=== PATIENT | female | born 1995 | race Caucasian/White ===

== ENCOUNTER 2023-05-14 13:14 | Outpatient (CLI) | payer OTHER, SELFPAY ==
--- NOTE | ~2023-05-14 | XR_ITS ---
EXAMINATION: XR ankle RT min 3V, XR foot LT min 3V, XR foot RT min 3V, XR ankle LT min 3V DATE: 05/14/2023 13:59 INDICATION: Chronic bilateral foot and ankle pain TECHNIQUE: 1. Anteroposterior, mortise, additional oblique and lateral view of the right ankle were obtained. 2. Dorsoplantar, two oblique and lateral views of the right foot were obtained. 3. Anteroposterior, mortise, additional oblique and lateral view of the left ankle were obtained. 4. Dorsoplantar, two oblique and lateral views of the left foot were obtained. COMPARISON: None. FINDINGS: Alignment of the bilateral feet and ankles is normal. Old healed distal left fibular fracture with la teral plate and screw fixation. Corticated ossicle at the tip of the left medial malleolus which coul d represent either a chronic nonunited avulsion fracture fragment or heterotopic ossification related to chronic deltoid ligament sprain. No acute fractures identified in either foot or ankle. Likely se condary mild osteoarthritis at the left ankle. Joint space at the bilateral feet. Relatively preserve d. No erosions to suggest inflammatory arthritis. Small bilateral Achilles calcaneal spurs and right plantar calcaneal spur. Soft tissues are unremarkable. No ankle joint effusions. IMPRESSION: 1. Old healed distal left fibular fracture with plate and screw fixation. No acute osseous abnormalit y. 2. 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 3. Small bilateral calcaneal enthesophytes. Reviewed, dictated and finalized at location A. IMPRESSION: 1. Old healed distal left fibular fracture with plate and screw fixation. No ac [place] osseous abnormality. 2. 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 3. Small bilateral calcaneal enthesophytes. IMPRESSION: 1. Old healed distal left fibular fracture with plate and screw fixation. No ac [place] osseous abnormality. 2. 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 3. Small bilateral calcaneal enthesophytes. IMPRESSION: 1. Old healed distal left fibular fracture with plate and screw fixation. No ac [place] osseous abnormality. 2. 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 3. Small bilateral calcaneal enthesophytes.
== END 2023-05-14 13:15 | disposition home or self-care (01) ==
LOC: CHSIMG 13:16
PROVIDERS: PCP Internal Medicine; Visit Provider Internal Medicine
DX: M77.31 Calcaneal spur, right foot (principal); M77.32 Calcaneal spur, left foot; Z96.698 Presence of other orthopedic joint implants
CPT/HCPCS: 73610; 73630

== ENCOUNTER 2023-05-21 08:25 | Outpatient (RCR) | payer OTHER, SELFPAY ==
--- NOTE | 2023-05-21 09:23 | OPREHPOC ---
Outpatient Therapy Plan of Care This is a Multidisciplinary Plan of Care that may contain components documented by all disciplines (PT, OT, and ST.) PT Problem 1 PT Problem #1 Knowledge Deficit PT Goal 1 Goal 1. independent and compliant with HEP Target Visit 6 PT Problem 2 PT Problem #2 Pain PT Goal 1 Goal 1. decrease pain at worst to 4/10 in either ankle with standing and walking for 1 hour or more. Target Visit 12 PT Problem 3 PT Problem #3 Impaired Strength PT Goal 1 Goal 1. 5/5 bilateral ankle strength 2. 20 single leg heel raises bilaterally with minimal UE assist Target Visit 12 PT Problem 4 PT Problem #4 Impaired Range of Motion PT Goal 1 Goal 1. improve bilateral ankle arom DF to 12 degrees or better 2. improve bilateral ankle eversion to 10 degrees or better Target Visit 12 PT Problem 5 PT Problem #5 Impaired Functional Mobil PT Goal 1 Goal 1. LEFS to display less than 35% functional deficits 2. patient to complete 10 minutes ambulation in clinic for over 1200ft 3. patient to report standing and completing home care tasks for 1 hour or more at a time. Target Visit 12
--- NOTE | 2023-05-21 09:23 | PTOPEVAL1 ---
Assessment and note entered by JT File, PT Evaluation Information Assessment Status Evaluation Diagnosis L ankle pain Onset 05/13/23 Subjective Information patient reports she has had issues with her ankles all her life. she has broken the L ankle 2 times. she reports most recently her L ankle was broken back in 2014. she reports she did not have surgery on the R ankle. she reports recently she has been having pain in her feet. she reports she has been unable to stand for more than 5 minutes due to pain. she reports she is unable to stand to do dishes, vacuum, clean. she reports she has pain along the inside and top of the L foot, and the outisde of the R foot. she reports she has tried injections to the feet, but reports these only helped for a few months. she reports she would like to be able to be independent and perform longer standing bouts. Reported Pain Level Pain Score 8,7: Self Report Assessment PT Clinical Summary mrs. lujan is a 27 yo woman who presents to skilled PT services with chronic L worse than R ankle pain. she presents with ankle instability bilaterally (worse on the L), ankle weakness, and decreased ankle rom. she would benefit from continued skilled PT to address her objective/ functional deficits to improve her standing, walking, and functional activity performance for better quality of life. Plan of Care Interventions Gait Training,Manual Therapy,Neuro Re-education, Patient/Caregiver Educati,Therapeutic Activities, Therapeutic Exercise PT Services Indicated Yes Treatment Frequency and 3x weekly for 12 visits Duration These treatments will address the objective and functional deficits as defined above. The patient will be advanced safely and appropriately in order for the patient to progress towards his/her prior level of function. Additional exercises will be introduced and as well as a comprehensive home exercise program upon discharge, if needed, ?to ensure carryover of functional gains achieved in the clinic. This treatment plan has been reviewed and agreement upon by the patient.
--- NOTE | 2023-06-09 09:30 | OPREHPOC ---
Outpatient Therapy Plan of Care This is a Multidisciplinary Plan of Care that may contain components documented by all disciplines (PT, OT, and ST.) PT Problem 1 PT Problem #1 Knowledge Deficit PT Goal 1 Goal 1. independent and compliant with HEP Target Visit 6 Progress Met PT Problem 2 PT Problem #2 Pain PT Goal 1 Goal 1. decrease pain at worst to 4/10 in either ankle with standing and walking for 1 hour or more. Target Visit 12 Progress Met PT Problem 3 PT Problem #3 Impaired Strength PT Goal 1 Goal 1. 5/5 bilateral ankle strength 2. 20 single leg heel raises bilaterally with minimal UE assist Target Visit 12 Comment continue PT Problem 4 PT Problem #4 Impaired Range of Motion PT Goal 1 Goal 1. improve bilateral ankle arom DF to 12 degrees or better 2. improve bilateral ankle eversion to 10 degrees or better Target Visit 12 Comment continue PT Problem 5 PT Problem #5 Impaired Functional Mobil PT Goal 1 Goal 1. LEFS to display less than 35% functional deficits 2. patient to complete 10 minutes ambulation in clinic for over 1200ft 3. patient to report standing and completing home care tasks for 1 hour or more at a time. Target Visit 12 Progress Partially Met Comment continue
--- NOTE | 2023-06-09 09:30 | PTOPPROG ---
Assessment and note entered by Abril Collazo DPT Evaluation Information Assessment Status Progress Diagnosis L ankle pain Onset 05/13/23 Subjective Information Patient reports that overall she has noticed improvement. She reports she is able to stand longer prior to onset of pain and has been able to do more house hold chores. Assessment PT Clinical Summary Ms. Murcia has been seen for 10 visits of skilled PT. She is progressing well towards goals at this time. She has met goals for HEP and pain but continues to be limited with standing and performing house hold tasks. She reports improve ability to stand for longer periods of time. She will benefit from remaining 2 visits to address impairments and return to PLOF. Plan of Care Interventions Gait Training,Manual Therapy,Neuro Re-education, Patient/Caregiver Educati,Therapeutic Activities, Therapeutic Exercise PT Services Indicated Yes Treatment Frequency and continue with remaining 2 visits Duration These treatments will address the objective and functional deficits as defined above. The patient will be advanced safely and appropriately in order for the patient to progress towards his/her prior level of function. Additional exercises will be introduced and as well as a comprehensive home exercise program upon discharge, if needed, ?to ensure carryover of functional gains achieved in the clinic. This treatment plan has been reviewed and agreement upon by the patient.
--- NOTE | 2023-06-18 10:01 | OPREHPOC ---
Outpatient Therapy Plan of Care This is a Multidisciplinary Plan of Care that may contain components documented by all disciplines (PT, OT, and ST.) PT Problem 1 PT Problem #1 Knowledge Deficit PT Goal 1 Goal 1. independent and compliant with HEP Target Visit 6 Progress Met PT Problem 2 PT Problem #2 Pain PT Goal 1 Goal 1. decrease pain at worst to 4/10 in either ankle with standing and walking for 1 hour or more. Target Visit 12 Progress Met PT Problem 3 PT Problem #3 Impaired Strength PT Goal 1 Goal 1. 5/5 bilateral ankle strength 2. 20 single leg heel raises bilaterally with minimal UE assist Target Visit 12 Progress Met Comment . PT Problem 4 PT Problem #4 Impaired Range of Motion PT Goal 1 Goal 1. improve bilateral ankle arom DF to 12 degrees or better 2. improve bilateral ankle eversion to 10 degrees or better Target Visit 12 Progress Partially Met Comment . PT Problem 5 PT Problem #5 Impaired Functional Mobil PT Goal 1 Goal 1. LEFS to display less than 35% functional deficits. 2. patient to complete 10 minutes ambulation in clinic for over 1200ft. met 3. patient to report standing and completing home care tasks for 1 hour or more at a time. met Target Visit 12 Progress Met Comment .
--- NOTE | 2023-06-18 10:01 | PTOPDC ---
Assessment and note entered by JT File, PT Evaluation Information Assessment Status Discharge Diagnosis L ankle pain Onset 05/13/23 Subjective Information patient reports she feels good today. she reports no pain in the L ankle. she reports she is compliant with HEP daily. Reported Pain Level Pain Score 0: Self Report Assessment PT Clinical Summary mrs. lujan presents to skilled PT for her 12th skilled therapy visit. she presents today with improved strength and rom of the bilateral ankles. she ambulates with normal mechanics and no pain. she has met nearly all goals for skilled PT. as this time, patient will DC skilled PT and continue with HEP independent at home. Plan of Care PT Services Indicated Yes
== END 2023-06-18 11:36 | disposition home or self-care (01) ==
LOC: CHSPT 08:25
PROVIDERS: PCP Internal Medicine; Visit Provider Internal Medicine
DX: M25.571 Pain in right ankle and joints of right foot (principal); M25.572 Pain in left ankle and joints of left foot
CPT/HCPCS: 97110; 97112; 97150; 97161; 97530

== ENCOUNTER 2023-11-19 15:00 | Outpatient (CLI) | payer OTHER, SELFPAY ==
--- NOTE | ~2023-11-19 | XR_ITS ---
XR foot LT 2V DATE: 11/19/2023 15:28 INDICATION: Left ankle and foot injury TECHNIQUE: 4 views COMPARISON: 05/14/2023 left foot FINDINGS: Plate and screws of the distal fibula. Hammertoe deformities of the toes. No recent fracture or dislocation. No periosteal reaction or bone destruction. IMPRESSION: No recent fracture or dislocation Reviewed, dictated and finalized at location B.
--- NOTE | ~2023-11-19 | XR_ITS ---
XR ankle LT 2V DATE: 11/19/2023 15:28 INDICATION: Left ankle injury TECHNIQUE: 3 views COMPARISON: 05/14/2023 left ankle FINDINGS: Plate and screws again noted along the distal fibula. No recent fracture or dislocation of the ankle or disruption of the ankle mortise is detected. IMPRESSION: No recent fracture Reviewed, dictated and finalized at location B. IMPRESSION: No recent fracture
== END 2023-11-19 15:01 | disposition home or self-care (01) ==
LOC: CHSIMG 15:03
PROVIDERS: PCP Internal Medicine; Visit Provider Internal Medicine
DX: S99.912A Unspecified injury of left ankle, initial encounter (principal)
CPT/HCPCS: 73600; 73620

== ENCOUNTER 2024-01-19 09:48 | Outpatient (CLI) | payer OTHER, SELFPAY ==
--- NOTE | ~2024-01-19 | CT_ITS ---
Procedure: CT ankle LT wo con Ordering provider: Laura Hummel DPM History: . ANKLE ARTHRITIS . Comparison: None. Technique: Thin slice axial CT of the No IV contrast was given. Sagittal and coronal reformatted imag es were also obtained and reviewed. Low Radiation technique was utilized. Findings: BONES: No fracture or dislocation seen. Postoperative changes are seen in the distal fibula. Small jose elias ny fragments are seen medial to the medial malleolus. JOINT SPACES: Mild osteoarthritic changes are noted. SOFT TISSUES: Soft tissue swelling seen inferior to the medial malleolus which may be fluid collectio n. Follow-up advised. IMPRESSION: No acute osseous abnormality. Osteoarthritic changes of the ankle joint medially and laterally. Reviewed, dictated and finalized at location A.
== END 2024-01-19 09:49 | disposition home or self-care (01) ==
LOC: ANHIMG 09:50
PROVIDERS: PCP Internal Medicine; Visit Provider Podiatrist Foot & Ankle Surgery
DX: M19.072 Primary osteoarthritis, left ankle and foot (principal)
CPT/HCPCS: 73700

== ENCOUNTER 2025-01-16 10:54 | Outpatient (RCR) | payer OTHER, SELFPAY ==
--- NOTE | 2025-01-16 12:13 | OPREHPOC ---
Outpatient Therapy Plan of Care This is a Multidisciplinary Plan of Care that may contain components documented by all disciplines (PT, OT, and ST.) PT Problem 1 PT Problem #1 Knowledge Deficit PT Goal 1 Goal / Goal Update Independent and compliant with HEP Target Visit 4 PT Problem 2 PT Problem #2 Impaired Strength PT Goal 1 Goal / Goal Update Pt to improve bilat ankle/foot strength to 5/5 bilat. Target Visit 10 PT Problem 3 PT Problem #3 Impaired Gait PT Goal 1 Goal / Goal Update Pt to ambulate without excessive pronation indicated improved arch support. Target Visit 10 PT Problem 4 PT Problem #4 Pain PT Goal 1 Goal / Goal Update Pt to report no more than 3/10 ankle/foot pain when standing up out of bed in the morning. Target Visit 10 PT Problem 5 PT Problem #5 Impaired Range of Motion PT Goal 1 Goal / Goal Update Pt to improve ankle df ROM to neutral bilaterally. Pt to improve R great toe ext to 70 deg. Target Visit 10
--- NOTE | 2025-01-16 12:13 | PTOPEVAL1 ---
Assessment and note entered by Melanie Garcia, PT Evaluation Information Assessment Status Evaluation ICD-10 Condition Codes (PT) Pain in right ankle and joints of right foot M25. 571 Other ICD-10 Condition Codes ( M72.2 PT) Onset 03/17/2024 Subjective Information Pt reports she has plantar fasciits on her R foot and she thinks she's had it before but hasn't been diagnosed with it. She reports she fell down the stairs in 2014 and broke both ankles and didn't have much pain until last year when her foot pain began. She reports she had to get surgery on her L ankle after the fracture and got PT but did not need surgery on her R ankle. Her pain is located along the medial arch of the R foot and is aggravated when walking without shoes, when getting up in the morning, and when going up/down stairs (her bedroom is in the basement). She states when her foot is more painful she'll slide down the stairs on her bottom, and there's no handrail currently. She reports her pain begins as an ache and gets more sharp and severe as she's up on her feet, reports occasional numbness/ tingling into the toes. Reported Pain Level Pain Score 0: Self Report Assessment PT Clinical Summary Ms. Murcia is a 29yo female who enters the clinic with reports of R foot pain along her medial arch that is aggravated upon standing up out of bed in the morning, walking without shoes, and going up/ down stairs. She demonstrates bilteral ankle/foot stiffness likely due to previous ankle fractures along with bilateral gastroc/soleus tightness. She also demonstrates generalized ankle/foot weakness bilaterally and excessive pronation during stance phase bilaterally during gait. She will benefit from skilled PT intervention to improve deficits and be able to perform daily functional tasks with less pain. Plan of Care Interventions Electrical Stimulation,Gait Training,Hot Pack/Cold Pack,Manual Therapy,Neuro Re-education,Patient/ Caregiver Education,Therapeutic Activities, Therapeutic Exercise,Self-Care/Home Management Other Interventions TPDN PT Services Indicated Yes Treatment Frequency and 2x/week for 10 visits Duration These treatments will address the objective and functional deficits as defined above. The patient will be advanced safely and appropriately in order for the patient to progress towards his/her prior level of function. Additional exercises will be introduced and as well as a comprehensive home exercise program upon discharge, if needed, ?to ensure carryover of functional gains achieved in the clinic. This treatment plan has been reviewed and agreement upon by the patient.
--- NOTE | 2025-02-06 10:53 | PCPTNOTE ---
Patient called & cancelled scheduled appointment this date due to having a seizure yesterday.
--- NOTE | 2025-02-20 09:53 | PTOPPROG ---
Assessment and note entered by Michael Gipson Evaluation Information Assessment Status Evaluation ICD-10 Condition Codes (PT) Pain in right ankle and joints of right foot M25. 571 Other ICD-10 Condition Codes ( M72.2 PT) Onset 03/17/24 Subjective Information Pt. reports that she is feeling better since beginning therapy. She reports that her pain levels are currently a 1-2/10. She reports pain intensity has decreased extensively. She reports that initially she could stand for about 2 minutes and can now stand for about 10 minutes. Assessment PT Clinical Summary Mrs. Murcia has attended a total of 10 treatment sessions. Significant improvements have been noted in ankle ROM, strength and subjective pain reports. Despite these improvements strength and mobility deficits remain present. Recommend continued skilled PT at this time for duration of original POC in order to further improve strength and mobility, transitioning program to focus more on closed kinetic chain activities. Plan of Care Interventions Gait Training,Manual Therapy,Neuro Re-education, Patient/Caregiver Education,Therapeutic Activities ,Therapeutic Exercise Other Interventions TPDN PT Services Indicated Yes Treatment Frequency and Continue 1x/week x 2 visits in order to transition Duration to more standing stabilization activities to further improve strength and mobility. These treatments will address the objective and functional deficits as defined above. The patient will be advanced safely and appropriately in order for the patient to progress towards his/her prior level of function. Additional exercises will be introduced and as well as a comprehensive home exercise program upon discharge, if needed, ?to ensure carryover of functional gains achieved in the clinic. This treatment plan has been reviewed and agreement upon by the patient.
--- NOTE | 2025-02-27 11:48 | PTOPDC ---
Assessment and note entered by Michael Gipson Evaluation Information Assessment Status Discharge ICD-10 Condition Codes (PT) Pain in right ankle and joints of right foot M25. 571 Other ICD-10 Condition Codes ( M72.2 PT) Onset 03/17/24 Subjective Information Pt. reports that she is doing well. She does not recall any significant right foot pain in a long time. She states that she will continue to exercise and is ready for discharge. Reported Pain Level Pain Score 1: Self Report Assessment PT Clinical Summary Pt. has met all goals established at the initial evaluation. She has no deficits in regards to strength and ROM and pain reports are minimal. She is appropriate for discharge at this time. Plan of Care PT Services Indicated No
== END 2025-02-27 20:00 | disposition home or self-care (01) ==
LOC: CHSPT 10:54
PROVIDERS: Visit Provider Podiatrist Foot & Ankle Surgery
DX: M72.2 Plantar fascial fibromatosis (principal)
CPT/HCPCS: 97110; 97112; 97140; 97161

== ENCOUNTER 2025-02-05 13:52 | Emergency (ER) | payer OTHER, SELFPAY ==
[2025-02-05 13:57] VITALS: BP 146/84; PULSE 104; RESP 18; TEMP 36.7; O2SAT 94
--- NOTE | 2025-02-05 13:58 | ED_ITS ---
HPI - General Adult General Chief complaint: Seizure Stated complaint: passed out at spiritism Time Seen by Provider: 02/05/25 13:57 History of Present Illness HPI narrative: Christi is a 29F with a PMH of asperger syndrome as well as a mood disorder that was brought in by EMS after a reported seizure in spiritism. She reportedly had a tonic clinic seizure, was post ictal and did urinate. She does not remember the incident. She recently had her bupropion dose increased to 200. Related Data Home Medications ?Medication ?Instructions ?Recorded ?Confirmed ?Last Taken ?Type citalopram 20 mg tablet 20 mg PO DAILY 11/20/22 Unknown History divalproex 125 mg tablet,delayed 125 mg PO ONCE 11/20/22 Unknown History release aripiprazole 2 mg tablet (Abilify) 2 mg PO DAILY 02/05/25 02/05/25 Unknown History bupropion HCl 200 mg tablet,12 hr 200 mg PO DAILY 02/05/25 02/05/25 Unknown History sustained-release (Wellbutrin SR) hydroxyzine HCl 25 mg tablet 25 mg PO DAILY 02/05/25 02/05/25 Unknown History Allergies Allergy/AdvReac Type Severity Reaction Status Date / Time No Known Allergies Allergy Verified 02/05/25 14:00 Review of Systems Review of Systems: All systems reviewed & are unremarkable except as noted in HPI and below PMFSH Social History Social History Smoking status: Never smoker Alcohol intake: current Alcohol use details: rarely Substance use: never Substance use type: does not use Lack of Transportation: No Lack of Food: Never True Current Housing: I Have Housing Concerned About Future Housing: No Difficulty Paying Gas/Electric Bills: No Difficulty Paying for Meds: No Currently Unemployed: Decline to Answer Education: High School Diploma/GED Difficulty w/ Childcare or Family Care: No Exam Const: General: cooperative, healthy appearing, comfortable, no acute distress, well developed, alert, awake and Physically active Orientation/consciousness: oriented to person, oriented to place and oriented to time HENMT: Head: normal to inspection, normocephalic and atraumatic Ears: hearing grossly normal bilaterally and external ears normal Face/Nose/Sinus: Normal external nose present Eyes: General: appearance normal, both eyes and all related structures Periorbital: periorbital findings normal Sclera: sclerae normal Pupils: Equal, round and reactive pupils present Neck: Neck: normal visual inspection Chest: Chest palpation & inspection: normal inspection of the chest Resp: Effort & Inspection: normal respiratory effort, able to speak in complete sentences and no respiratory distress Auscultation: clear to auscultation bilaterally Cardio: Jugular venous distension: no JVD Rate: regular rate Rhythm: regular rhythm GI: Inspection: normal to inspection GI Palp: Yes Soft to palpation Auscultation: normal bowel sounds Skin: General skin exam: normal color and no rashes or lesions noted Neuro: General: oriented to person, oriented to place and oriented to time Cranial nerves: Yes Equal, round and reactive pupils present Extrem: General: normal to inspection Course Course Emergency Course: Ordered labs as below. EKG shows NSR with a rate of 89, no ST elevation/depression, or ectopy Labs largely unremarkable She returned to her baseline and was feeling well. We discussed with her and her family how bupropion can lower the seizure threshold and how she needs to decrease the dose or stop it. Vital Signs Vital signs: Vital Signs Temperature 98.0 F 02/05/25 13:57 Pulse Rate 104 H 02/05/25 13:57 Respiratory Rate 18 02/05/25 13:57 Blood Pressure 146/84 H 02/05/25 13:57 Pulse Oximetry 94 02/05/25 13:57 Oxygen Delivery Room Air 02/05/25 13:57 Temperature 98.0 F 02/05/25 13:57 Pulse Rate 104 H 02/05/25 13:57 Respiratory Rate 18 02/05/25 13:57 Blood Pressure 146/84 H 02/05/25 13:57 Pulse Oximetry 94 02/05/25 13:57 Oxygen Delivery Room Air 02/05/25 13:57 Medical Decision Making Vital Signs Vital Signs: Vital Signs Temperature 98.0 F 02/05/25 13:57 Pulse Rate 104 H 02/05/25 13:57 Respiratory Rate 18 02/05/25 13:57 Blood Pressure 146/84 H 02/05/25 13:57 Pulse Oximetry 94 02/05/25 13:57 Oxygen Delivery Room Air 02/05/25 13:57 Temperature 98.0 F 02/05/25 13:57 Pulse Rate 104 H 02/05/25 13:57 Respiratory Rate 18 02/05/25 13:57 Blood Pressure 146/84 H 02/05/25 13:57 Pulse Oximetry 94 02/05/25 13:57 Oxygen Delivery Room Air 02/05/25 13:57 Discharge Plan Discharge Clinical Impression: Epileptic seizure Patient Disposition: Home Condition: Stable Instructions: Recurrent Seizures in Adults (ED) Additional Instructions: Hold bupropion until you follow up with your regular provider Patient Language: Cook Islander Prescriptions: No Action bupropion HCl [Wellbutrin SR] 200 mg tablet sustained-release 12 hr 200 mg PO DAILY hydroxyzine HCl 25 mg tablet 25 mg PO DAILY aripiprazole [Abilify] 2 mg tablet 2 mg PO DAILY divalproex 125 mg tablet,delayed release (DR/EC) 125 mg PO ONCE citalopram 20 mg tablet 20 mg PO DAILY Follow-up/Referrals: Alicia Ordoñez MD [Primary Care Provider] -
--- NOTE | 2025-02-05 14:06 | ECG_ITS ---
Test Date: 2025-02-05 14:16:44 Measurements Intervals Griffin Rate: 89 P: 38 MN: 142 QRS: 48 QRSD: 88 T: 35 QT: 343 QTc: 418 Interpretive Statements SINUS RHYTHM NORMAL ECG No previous ECG available for comparison Electronically Signed On 02-05-2025 18:13:24 CDT by Tato Hurd D.O.
[2025-02-05 14:29] LABS: Basophils Absolute Auto 0.03 K/mm3 (0.00-0.10); Basophils Percent Auto 0.3 % (0.0-1.0); Eosinophils Absolute Auto 0.07 K/mm3 (0.02-0.50); Eosinophils Percent Auto 0.7 % (1.0-6.0); Hematocrit 42.2 % (35.0-49.0); Hemoglobin 13.7 g/dL (12.0-15.0); Immature Granulocyte Absolute 0.09 K/mm3 (0.00-0.00); Immature Granulocyte Percent A 0.9 % (0.0-0.0); Lymphocytes Absolute Auto 1.97 K/mm3 (1.10-4.50); Lymphocytes Percent Auto 19.7 % (18.0-42.0); Mean Corpuscular HGB Conc 32.5 g/dL (32-36); Mean Corpuscular Hemoglobin 27.2 pg (27.0-31.0); Mean Corpuscular Volume 83.9 fL (78.0-102.0); Mean Platelet Volume 8.5 fl (9.2-11.8); Monocytes Absolute Auto 0.52 K/mm3 (0.10-0.90); Monocytes Percent Auto 5.2 % (2.0-11.0); Neutrophils Percent Auto 73.2 % (50.0-70.0); Platelet Count Result 375 K/mm3 (150-420); Red Blood Count 5.03 M/mm3 (4.20-5.40); Red Cell Distribution Width 12.6 % (11.6-14.4)
[2025-02-05 14:45] LABS: Alanine Aminotransferase 28 U/L (6-35); Albumin Level 4.2 g/dL (3.5-5.1); Alkaline Phosphatase 173 U/L (38-126); Anion Gap 12 mmol/L (4-12); Aspartate Amino Transferase 33 U/L (14-36); Bilirubin,Total 0.4 mg/dL (0.2-1.3); Blood Urea Nitrogen 6 mg/dL (7-17); Calcium 9.2 mg/dL (8.4-10.2); Carbon Dioxide 21 mmol/L (22-30); Chloride 106 mmol/L (98-107); Estimated CRCL calculation 87 ml/min; Estimated Glomerular Filt Rate > 60; Glucose 92 mg/dL (65-110); Osmolality Calculated 285 mOsm/kg (285-295); Potassium 4.3 mmol/L (3.4-5.0); Sodium 139 mmol/L (137-145); Total Protein 7.3 g/dL (6.3-8.2)
[2025-02-05 15:14] VITALS: BP 128/90; PULSE 85; RESP 16; O2SAT 100
[2025-02-07 21:59] LABS: Prolactin. 4.7 ng/mL
== END 2025-02-05 15:40 | disposition home or self-care (01) ==
PROVIDERS: Emergency Provider Family Medicine; PCP Internal Medicine
DX: G40.909 Epilepsy, unspecified, not intractable, without status epilepticus (principal); Z79.899 Other long term (current) drug therapy
CPT/HCPCS: 36415; 80053; 80164; 80165; 84146; 85025; 93005; 99283

== ENCOUNTER 2025-06-01 12:34 | Outpatient (CLI) | payer OTHER, SELFPAY ==
--- NOTE | ~2025-06-01 | CT_ITS ---
EXAMINATION: CT foot LT wo con DATE: 06/01/2025 13:19 INDICATION: Left posterior tibial tendinitis TECHNIQUE: High resolution computed tomography (CT) of the left foot and ankle was performed without intravenous contrast. Additional sagittal and coronal reconstructions were performed. Automated exposure control and iterative reconstruction technique were employed. The dose-length product was 532.22 mGy-cm. COMPARISON: CT dated 01/19/2024 and radiographs dated 11/19/2023 FINDINGS: Again seen is fracture of the distal left fibula which is fixed with a lateral plate and screws. Bone alignment is normal. No acute fracture. Polyarticular osteoarthritis, moderate severity at the left ankle and minimal to mild at multiple joints throughout the left foot. Heterotopic ossification along the deep deltoid ligament consistent with sequela of chronic sprain. No joint effusions or other abnormal fluid collections. Again seen are a couple tiny these heterotopic ossicles along the tibialis posterior tendon near its bifurcation between components attaching at the navicula and the portion of the tendon extending to the cuneiforms and bases of the metatarsals. IMPRESSION: 1. Old healed distal left fibular fracture with lateral plate and screw fixation. No acute osseous abnormality. 2. Polyarticular osteoarthritis, moderate severity at the ankle joint and minimal to mild multilevel joints throughout the left foot. Reviewed, dictated and finalized at location A. IMPRESSION: 1. Old healed distal left fibular fracture with lateral plate and screw fixatio n. No acute osseous abnormality. 2. Polyarticular osteoarthritis, moderate severity at the ankle joint and minim al to mild multilevel joints throughout the left foot.
--- OUTSIDE RECORDS SUMMARY | 2025-06-01 14:11 | XMS_ITS | Clinical Summary ---
Author Organization [facility] [address] [facility] Address [address] [place] [address] Care Team Providers Care Superintendent Menagerie Name Role Phone Alicia Ordoñez MD Primary Care Provider + [phone] Laura Hummel DPM Unavailable Allergies No known active allergies Medications buPROPion SR (WELLBUTRIN SR) 150 mg 12 hr tablet 4 Active hydrOXYzine (ATARAX) 25 mg tablet Take 2 tablets (50 mg total) by mouth every evening 4 Active multivit-minerals /folic acid (WOMEN'S MULTIVITAMIN GUMMIES ORAL) Take by mouth daily Active Active Problems Problem Noted Date Diagnosed Date Chronic pain of left ankle 04/29/2024 Arthritis of left ankle 04/29/2024 Surgical History Surgery Date Site/Laterality Comments ANKLE FRACTURE SURGERY 04/05/2015 Left Medical History Medical History Date Comments PONV (postoperative nausea and vomiting) Autism Anxiety Asperger's syndrome Family History Medical History Relation Name Comments Cancer Maternal Grandfather Breast cancer Mother Relation Name Status Comments Maternal Grandfather Mother Social History Tobacco Use Types Packs/Day Years Used Date Smoking Tobacco: Never Smokeless Tobacco: Never Tobacco Cessation:Counseling Given: Not Answered AUDIT-C Answer Date Recorded Q1: How often do you have a drink containing alc ohol? Never 05/20/2024 Q2: How many drinks containi ng alcohol do you have on a typical day when you are drinking? 1 or 2 05/20/2024 Frequency of Binge Drinking Not on file 11/2023 Personal Safety Answer Date Recorded Have you ever been in or are you currently in a harmful physical or emotional relationship or is someone making you feel afraid or unsafe? 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 Gender Identity Not on file Sexual Orientation Not on file Obstetrics History Last Filed Vital Signs Vital Sign Reading Time Taken Comments Blood Pressure 114/84 05/20/2024 2:55 PM CDT Pulse 95 05/20/2024 2:55 PM CDT Temperature 36.5 C (97.7 F) 05/20/2024 2:55 PM CDT Respiratory Rate 18 05/20/2024 2:55 PM CDT Oxygen Saturation 97% 05/20/2024 2:55 PM CDT Inhaled Oxygen Concentration - - Weight 94.3 kg (207 lb 14.3 oz) 024 10:37 AM CDT Height 160 cm (5' 3) 05/20/2024 10:37 AM CDT Body Mass Index 36.83 05/20/2024 10:37 AM CDT Plan of Treatment Health Maintenance Due Date Last Done Comments Cervical Cancer Screening 1996 Depression Screening 1996 Hepatitis C Screening 1996 Regular Well Visit/Exam 18-64 2014 DTaP/Tdap/Td Vaccine (7 - Td or Tdap) 03/27/2017 03/27/2007, 02/22/2002, 11/23/1997, Additional history exists Covid-19 Vaccine ( season) 2025 12/15/2021, 12/25/2020, 11/27/2020 Influenza Vaccine (#1) 2025 05/24/2020, 2018 Hepatitis B Screening Completed 1996 , 1996, 1996 HPV Vaccines Completed 10/11/2010, 02/15, 01/01/2010 Varicella Vaccines Completed 02/03/2011, 01/01/2010 Pneumococcal vaccine <65 Aged Out No longer eligible based on patient's age to complete this topic Insurance [facility] Care Teams Superintendent Menagerie Relationship Specialty Start Date End Date Alicia Ordoñez MD [address] [place] [address] PCP - General Internal Medicine 05/19/23 Laura Hummel DPM [address] [place] [address] Consulting Physician Foot and Ankle Surg 05/20/24
--- OUTSIDE RECORDS SUMMARY | 2025-06-01 14:11 | XMS_ITS | Clinical Summary ---
Author Organization [facility] Address [address] [place] [address] Care Team Providers Care Oral Therapist Name Role Phone Flor Uriarte MD Primary Care Provider [phone] Source Comments [facility],non-owned Affiliates and Associated Physician Practices is amultiple site organization consisting of ambulatory clinics and hospital sitesin [place], [place], [place] and [place]. This disclosure is being madepursuant to the Care Everywhere program and may not contain all information available regarding this patient. Last updated 18.[facility] Allergies No known active allergies Medications * Be aware that medications may not be up to date on this document. Alwaysverify current medications with the patient. No known medications Active Problems Problem Noted Date Diagnosed Date Right ankle sprain 06/07/2015 Fracture of fibula, left, closed 04/05/2015 Fractured medial malleolus 04/05/2015 Closed fracture of 2nd metatarsal 11/02/2014 Fracture of 2nd metatarsal 09/28/2014 Closed fracture of metatarsal bone 08/31/2014 Overview (05/17/2015): Left foot pain 07/20/2014 Fracture of second metatarsal bone 07/20/2014 Family History Medical History Relation Name Comments Anesthesia Reaction Maternal Grandfather requires extra doses of anesthesia to keep asleep Relation Name Status Comments Maternal Grandfather Social History Tobacco Use Types Packs/Day Years Used Date Smoking Tobacco: Never Alcohol Use Standard Drinks/Week Comments No 0 (1 standard drink = 0.6 oz pur e alcohol) Comments No Sex and Gender Information Value Date Recorded Sex Assigned at Not on file Legal 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 Gender Identity Not on file Sexual Orientation Not on file Last Filed Vital Signs Vital Sign Reading Time Taken Comments Blood Pressure 124/68 04/13/2015 6:00 PM CDT Pulse 81 04/13/2015 6:00 PM CDT Temperature 36.6 C (97.9 F) 04/13/2015 4:30 PM CDT Respiratory Rate 18 04/13/2015 6:00 PM CDT Oxygen Saturation 96% 04/13/2015 6:00 PM CDT Inhaled Oxygen Concentration - - Weight 84 kg (185 lb 3 oz) 07/16/2015 9:34 AM CS T Height 159.6 cm (5' 2.84) 07/16/2015 9:34 AM CS T Body Mass Index 32.98 07/16/2015 9:34 AM 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 Plan of Treatment Health Maintenance Due Date Last Done Comments HIV SCREENING 2011 HEPATITIS C SCREENING 05/19/2014 DTAP/TDAP/TD VACCINES (1 - Tdap) 2015 HEPATITIS B VACCINE (1 of 3 - 19+ 3-dose series) 2015 HPV VACCINE (1 - 3-dose SCDM series) 2023 DEPRESSION SCREENING 08/17/2024 COVID-19 VACCINE (1 - 2023-2 5 season) 2025 INFLUENZA VACCINE (#1) 2025 ZOSTER VACCINE (1 of 2) 2046 HIB VACCINE Aged Out No longer eligi ble based on patient's age to complete this topic MENINGOCOCCAL (Group B) VACC INE SHARED DECISION-MAKING Aged Out No longer eligibl e based on patient's age to complete this topic MENINGOCOCCAL GROUPS A/C/Y/W VACCINE Aged Out No longer eligible b ased on patient's age to complete this topic PNEUMOCOCCAL VACCINE Aged Out No long er eligible based on patient's age to complete this topic Medical Devices Implanted Type Area Silver Chaser Device Identifier Shelf Expiration Date Model / Serial / Lot Plate D Fib Vlp Norm L 5hole 62mm Implanted:Qty: 1 on 04/13/2015 by Velvet Swanson MD at [facility] Left: Fibula [employer] [id number] / / Scrw Norm Carol Vlp 3.5mm X 10mm Implanted:Qty: 2 on 04/13/2015 by Velvet Swanson MD at [facility] Left: Fibula [employer] [id number] / / Explanted Type Area Silver Chaser Device Identifier Shelf Expiration Date Model / Serial / Lot Plate Fib Norm Vlp 4hole 3.5mm Explanted:Qty: 1 on 04/13/2015 by Velvet Swanson MD at [facility] Left: Fibula [employer] [id number] / / Scrw Norm Carol Vlp Ad 3.5mm X 10mm Explanted:Qty: 1 on 04/13/2015 by Velvet Swanson MD at [facility] Left: Fibula [employer] [id number] / / Scrw Nomr Carol Vlp 3.5mm X 10mm Explanted:Qty: 1 on 04/13/2015 by Velvet Swanson MD at [facility] Left: Fibula [employer] [id number] / / Scrw Norm Carol Vlp 3.5mm X 14mm Explanted:Qty: 1 on 04/13/2015 by Velvet Swanson MD at [facility] Left: [employer]ula [employer] [id number] / / Wire K W/Trcr Pt 1.6mm X 150mm Explanted:Qty: 1 on 04/13/2015 by Velvet Swanson MD at [facility] Left: Fibula [employer] [id number] / / Insurance [employer] Advance Directives Documents on File Type Date Recorded 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 [address] [place] [id number] PCP - General 10/07/10
== END 2025-06-01 12:35 | disposition home or self-care (01) ==
PROVIDERS: PCP Internal Medicine; Visit Provider Podiatrist Foot & Ankle Surgery
DX: M76.822 Posterior tibial tendinitis, left leg (principal); M19.072 Primary osteoarthritis, left ankle and foot
CPT/HCPCS: 73700

== ENCOUNTER 2025-06-14 09:35 | Outpatient (CLI) | payer OTHER, SELFPAY ==
[2025-06-14 10:00] LABS: Hematocrit 44.3 % (35.0-49.0); Hemoglobin 14.4 g/dL (12.0-15.0); Mean Corpuscular HGB Conc 32.5 g/dL (32-36); Mean Corpuscular Hemoglobin 27.5 pg (27.0-31.0); Mean Corpuscular Volume 84.5 fL (78.0-102.0); Platelet Count Result 393 K/mm3 (150-420); Red Blood Count 5.24 M/mm3 (4.20-5.40); White Blood Count 8.2 K/mm3 (4.8-10.8)
[2025-06-14 10:23] LABS: Alanine Aminotransferase 18 U/L (6-35); Albumin Level 4.4 g/dL (3.5-5.1); Alkaline Phosphatase 166 U/L (38-126); Anion Gap 9 mmol/L (4-12); Aspartate Amino Transferase 27 U/L (14-36); Bilirubin,Total 0.7 mg/dL (0.2-1.3); Blood Urea Nitrogen 4 mg/dL (7-17); Calcium 9.8 mg/dL (8.4-10.2); Carbon Dioxide 28 mmol/L (22-30); Chloride 104 mmol/L (98-107); Cholesterol 167 mg/dL (0-200); Estimated Glomerular Filt Rate > 60; Glucose 88 mg/dL (65-110); HDL Direct 44 mg/dL; Iron 130 ug/dL (37-170); Osmolality Calculated 287 mOsm/kg (285-295); Potassium 4.5 mmol/L (3.4-5.0); Sodium 141 mmol/L (137-145); Total Protein 7.9 g/dL (6.3-8.2); Triglycerides 153 mg/dL (<150)
--- OUTSIDE RECORDS SUMMARY | 2025-06-14 10:33 | XMS_ITS | Clinical Summary ---
Author Organization [facility] Address [address] [facility] [place] [address] Care Team Providers Care Puppet Developer Name Role Phone Flor Uriarte MD Primary Care Provider [phone] Source Comments [facility],non-owned Affiliates and Associated Physician Practices is amultiple site organization consisting of ambulatory clinics and hospital sitesin [place], [place], [place] and [place]. This disclosure is being madepursuant to the Care Everywhere program and may not contain all information available regarding this patient. 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 Gender Identity Not on file Sexual Orientation [...] Body Mass Index 32.98 07/16/2015 9:34 AM CIVIL CLERK Plan of Treatment Health Maintenance Due Date [...] this topic Medical Devices Implanted Type Area Hardening Machine Operator Device Identifier Shelf Expiration Date Model / Serial / Lot Plate D Fib Vlp Norm L 5hole 62mm Implanted:Qty: 1 on 04/13/2015 by Velvet Swanson MD at [facility] Left: Fibula [employer] [id number] / / Scrw Norm Carol Vlp 3.5mm X 10mm Implanted:Qty: 2 on 04/13/2015 by Velvet Swanson MD at [facility] Left: Fibula [employer] [id number] / / Explanted Type Area Hardening Machine Operator Device Identifier Shelf Expiration Date Model / Serial / Lot Plate Fib Norm Vlp 4hole 3.5mm Explanted:Qty: 1 on 04/13/2015 by Velvet Swanson MD at [facility] Left: Fibula [employer] [id number] / / Scrw Norm Carol Vlp Ad 3.5mm X 10mm Explanted:Qty: 1 on 04/13/2015 by Velvet Swanson MD at [facility] Left: [employer] [id number] / / Scrw Norm Acrol Vlp 3.5mm X 10mm Explanted:Qty: 1 on 04/13/2015 by Velvet Swanson MD at [facility] Left: [employer]ula [employer] [id number] / / Scrw Norm Carol Vlp 3.5mm X 14mm Explanted:Qty: 1 on 04/13/2015 by Velvet Swanson MD at [facility] Left: [employer]ula [employer] [id number] / / Wire K W/Trcr Pt 1.6mm X 150mm Explanted:Qty: 1 on 04/13/2015 by Velvet Swanson MD at [facility] Left: Fibula [employer] [id number] / / Insurance [employer] Advance Directives Documents on File Type Date Recorded 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 [place] [id number] PCP - General 10/07/10
--- OUTSIDE RECORDS SUMMARY | 2025-06-14 10:33 | XMS_ITS | Clinical Summary ---
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
[2025-06-14 10:40] LABS: Free T4 Free Thyroxine 0.82 ng/dL (0.78-2.19)
[2025-06-14 10:54] LABS: Thyroid Stimulating Hormone 1.490 uIU/mL (0.465-4.680)
[2025-06-14 10:58] LABS: Ferritin 62.70 ng/mL (6.24-137)
[2025-06-14 17:32] LABS: Add Urine Microscopic? YES; Appearance Urine Sl Cloudy (Clear); Glucose Urine UA Negative (Negative); Leukocyte Esterase Ur Negative LEU/UL (Negative); Nitrate Urine Negative (Negative); Specific Grav Ur <= 1.005 (1.010-1.020)
== END 2025-06-14 09:36 | disposition home or self-care (01) ==
LOC: CHSLAB 09:37
PROVIDERS: PCP Internal Medicine; Visit Provider Internal Medicine
DX: I10 Essential (primary) hypertension (principal); D64.9 Anemia, unspecified; E78.2 Mixed hyperlipidemia; N39.0 Urinary tract infection, site not specified
CPT/HCPCS: 36415; 80053; 80061; 81001; 82728; 83540; 84439; 84443; 85027